=== PATIENT | male | born 1945 | race Caucasian/White ===

== ENCOUNTER 2019-01-10 07:23 | Emergency (ER) | payer OTHER ==
[~2019-01-10] VITALS: Ht 167.6 cm; Wt 61.4 kg
[2019-01-10 08:57] LABS: APPEARANCE,URINE CLEAR (CLEAR); BILIRUBIN,URINE NEGATIVE (NEGATIVE); GLUCOSE, URINE (UA) NEGATIVE (NEGATIVE); KETONES,URINE NEGATIVE (NEGATIVE); LEUKOCYTE ESTERASE ,URINE NEGATIVE (NEGATIVE); NITRATE,URINE NEGATIVE (NEGATIVE); OCCULT BLOOD,URINE LARGE (NEGATIVE); PROTEIN,URINE NEGATIVE (NEGATIVE); UROBILINOGEN,URINE 0.2 mg/dL (<=1.0)
[2019-01-10 09:04] LABS: BACTERIA,URINE None Seen /HPF (None Seen); WBC,URINE None Seen /HPF (0-5)
[2019-01-10] MEDS ORDERED: TAMSULOSIN HCL 0.4 MG CAPSULE PO ONE (09:15)
[2019-01-10 09:18] VITALS: BP 122/71
== END 2019-01-10 09:56 | disposition home or self-care (01) ==
LOC: EMS 07:24
DX: R33.9 Retention of urine, unspecified (principal); F17.210 Nicotine dependence, cigarettes, uncomplicated
CPT/HCPCS: 51702

== ENCOUNTER 2019-01-21 18:14 | Emergency (ER) | payer OTHER ==
[~2019-01-21] VITALS: Ht 167.6 cm; Wt 61.4 kg
[2019-01-21 18:24] VITALS: BP 127/61
== END 2019-01-21 22:51 | disposition left against medical advice (07) ==
LOC: EMS 18:16
DX: T83.091A Other mechanical complication of indwelling urethral catheter, initial encounter (principal); Z53.21 Procedure and treatment not carried out due to patient leaving prior to being seen by health care provider